=== PATIENT | male | born 1975 | race Caucasian/White ===

== ENCOUNTER → 2019-04-26 16:38 | Outpatient (CLI) | payer BC, SELFPAY ==
[2019-04-26 17:57] LABS: Synovial Fld Mononuclear WBC % 6.6 %; Synovial Fld Polynuclear WBC # 7.909 10^3/uL; Synovial Fld Polynuclear WBC % 93.4 %
[2019-04-26 18:00] LABS: RBC /Synovial Fluid 0.006 10^6/uL (0)
[2019-04-26 18:50] LABS: Lymph 3 %; Monocyte /Synovial Fluid 2 %; Neutrophil 92 % (0-25); Other Cell /Synovial Fluid 3 %
[2019-04-26 18:52] LABS: AUTO B FLUID DILUENT BKGD CT WBC <0.1 RBC <0.01 (W<.1,R<.01); Appearance /Synovial Fluid Cloudy (CLEAR); Color / Synovial Fluid Yellow (Pale Yellow)
[2019-04-26 18:53] LABS: Body Fluid QC Type(s) BF4Q
[2019-04-27 10:42] LABS: Pathologist Comment Reviewed
== END ==
PROVIDERS: Family Provider Family Medicine Hospice and Palliative Medicine; PCP Family Medicine Hospice and Palliative Medicine; Referring Provider Physician Assistant Surgical; Visit Provider Physician Assistant Surgical
DX: M70.42 Prepatellar bursitis, left knee (principal); M25.562 Pain in left knee
CPT/HCPCS: 87015; 87070; 87075; 87101; 87116; 87205; 87206; 89050; 89051

== ENCOUNTER → 2021-06-09 16:14 | Outpatient (CLI) | payer BC, SELFPAY ==
[2021-06-09 16:34] LABS: Pathologist Comment May follow
[2021-06-09 17:12] LABS: RBC /Synovial Fluid 0.074 10^6/uL (0); Synovial Fld Mononuclear WBC % 3.7 %; Synovial Fld Polynuclear WBC # 8.843 10^3/uL; Synovial Fld Polynuclear WBC % 96.3 %
[2021-06-09 18:05] LABS: Lymph 3 %; Monocyte /Synovial Fluid 5 %; Neutrophil 92 % (0-25)
[2021-06-09 18:06] LABS: AUTO B FLUID DILUENT BKGD CT WBC <0.1 RBC <0.01 (W<.1,R<.01); Appearance /Synovial Fluid Cloudy (CLEAR); Color / Synovial Fluid Red (Pale Yellow); Source / Synovial Fluid RIGHT KNEE; Synovial Fld Mononuclear WBC # 0.336 10^3/ul
[2021-06-09 18:07] LABS: Body Fluid QC Type(s) BF2Q,BF3Q
[2021-06-09 18:08] LABS: Source- Body Fluid SYNOVIAL
[2021-06-11 09:19] LABS: Pathologist Review Reviewed
== END ==
PROVIDERS: PCP Internal Medicine; Visit Provider Physician Assistant
DX: M70.41 Prepatellar bursitis, right knee (principal)
CPT/HCPCS: 87015; 87070; 87075; 87101; 87116; 87205; 87206; 89050; 89051; 89060

== ENCOUNTER → 2024-01-04 | Outpatient (CLI) | payer BC, SELFPAY ==
--- NOTE | 2024-01-04 17:12 | STRESSREP ---
Stress Test Report Exercise stress test. 48-year-old man with a history of chest pain Stress protocol: Resting EKG demonstrates normal sinus rhythm with a rate of 65 bpm resting blood pressure is 138/80 mmHg. The patient exercised according to the regular [facility] protocol for a total duration of 11 minutes attaining a maximum heart rate of 146 bpm which was 84% of maximum predicted heart rate; the maximum workload was 13.4 METS metabolic equivalents. At rest there were no ST or T wave changes noted to suggest ischemia and at peak exercise upsloping ST changes only were noted which did not meet the criteria for ischemia. No clinical angina was noted the test was terminated due to the target heart rate being achieved/fatigue. The peak blood pressure was 160/74 mmHg. Rate-pressure product was 22,800. Conclusion: Stress test with no EKG changes for ischemia at a high workload
== END | disposition home or self-care (01) ==
LOC: CVS 12:14
PROVIDERS: PCP Internal Medicine; Referring Provider Internal Medicine; Visit Provider Internal Medicine
DX: R07.9 Chest pain, unspecified (principal)
CPT/HCPCS: 93017